=== PATIENT | male | born 1945 | race Caucasian/White ===

== ENCOUNTER 2017-12-20 02:53 | Emergency (ER) | payer MEDICARE ==
[~2017-12-20] VITALS: Ht 182.9 cm; Wt 93.0 kg
== END 2017-12-20 04:29 | disposition home or self-care (01) ==
LOC: ED 02:53
DX: S39.012A Strain of muscle, fascia and tendon of lower back, initial encounter (principal); S16.1XXA Strain of muscle, fascia and tendon at neck level, initial encounter; V89.2XXA Person injured in unspecified motor-vehicle accident, traffic, initial encounter
CPT/HCPCS: 72040; 72070; 72100; 99283

== ENCOUNTER 2017-12-22 01:13 | Emergency (ER) | payer MEDICARE ==
[~2017-12-22] VITALS: Ht 182.9 cm; Wt 93.0 kg
[2017-12-22] MEDS ORDERED: TRAMADOL HCL50 MG PO (02:57)
== END 2017-12-22 03:22 | disposition home or self-care (01) ==
LOC: ED 01:13
DX: S16.1XXA Strain of muscle, fascia and tendon at neck level, initial encounter (principal); V43.92XA Unspecified car occupant injured in collision with other type car in traffic accident, initial encounter
CPT/HCPCS: 72125; 99284